=== PATIENT | female | born 2000 | race Caucasian/White ===

== ENCOUNTER 2024-10-28 08:58 | Emergency (ER) | payer BC, SELFPAY ==
[2024-10-28] VITALS (7 sets, daily range): BP systolic 108–119; BP diastolic 64–75; PULSE 66–85; RESP 16–19; TEMP 36.5–37.2; O2SAT 95–99
--- NOTE | ~2024-10-28 | US_ITS ---
US right upper quadrant INDICATION: Right upper quadrant pain PROCEDURE: Realtime right upper abdominal ultrasound. COMPARISON: No prior studies for comparison. FINDINGS: Pancreas not well visualized due to overlying bowel gas and patient body habitus. Liver ec hotexture is diffusely increased, consistent with fatty infiltration. There is normal directional fl ow in the portal vein. The gallbladder is normal without stones, gallbladder wall thickening or pericholecystic fluid. Comm on bile duct measures 4 mm. No sonographic Stubbs's sign. IMPRESSION: 1: Fatty infiltration of the liver. Reviewed, dictated and finalized at location A.
--- NOTE | ~2024-10-28 | CT_ITS ---
CT of the Abdomen and Pelvis: Indication: Abdominal pain, transaminitis Technique: 2.5 mm axial scans were obtained through the abdomen and pelvis following intravenous adm inistration of 100 cc of Omnipaque 350. Dose reduction technique was used on this scan by utilizing a utomated exposure control and iterative reconstruction technique. The dose-length product (DLP) was 1 685.10 mGy-cm. Findings: Scans through the lung bases are unremarkable. Probable diffuse hepatic steatosis. The spleen, pancreas, gallbladder, adrenals and kidneys are withi n normal limits. No evidence of aortic aneurysm. No lymphadenopathy. No bowel obstruction or bowel wall thickening. There is no evidence to suggest acute appendicitis. Images through the pelvis were performed. Urinary bladder unremarkable. No pelvic mass seen. No ascit es. Impression: Diffuse hepatic steatosis. Reviewed, dictated and finalized at location . Impression: Diffuse hepatic steatosis.
--- OUTSIDE RECORDS SUMMARY | 2024-10-28 09:07 | XMS_ITS | Continuity of Care Document ---
Author Organization [facility] Address [address] [place] [address] [place] [address] Phone Care Team Providers Care Tie Puller Name Role Phone Tucker OD, Taylor Unavailable Unavailable Medications Medication Instructions Dosage Effective Dates (start - stop) Status Comments escitalopram 20 mg tablet take 1 tablet by oral route every day 20 MG - Active Advance Directives Directive Yes / No Effective Date File Name No Information Encounters Encounter Description Practice Location Reason(s) For Visit Diagnoses Date Provider Providers Copied on Encounter [facility], [id number] [place] [address] [address], [place], [place], [id number], tel:[phone] [facility] No Information Tucker OD Taylor. [address] [place] [address] [address], [place], [place], [address], [place]. tel:[phone] Family History Family Member Type Diagnosis Age At Onset Problem Family history of Diabetes m slim Payers Payer name Insurance type Covered libertarian ID Authoriza tion(s) No Information Social History Type Description Quantity Date Captured Comments Alcohol Use Details Caffeine Use Details and coffee 1 cup per day Tobacco Use Status Current non-smoker Smoking Status Never smoker Non-Smoking Tobacco Use Details : No Details Available : No Details Available Sex Female Gender Identity Female Chief Complaint And Reason For Visit No Information Reason For Referral Reason For Referral No Information History Of Present Illness Encounter Date Complaint History Of Prese nt Illness No Information Functional Status Date Functional Assessmen t No Information Instructions Date Instruction Additional Infor mation No Information Assessments Type Assessment Date No Information Patient Care Teams Name Effective Dates (start - stop) Status Members No Information
--- NOTE | 2024-10-28 09:19 | ECG_ITS ---
Test Date: 2024-10-28 09:39:38 Measurements Intervals [place] Rate: 76 P: 16 NC: 149 QRS: 19 QRSD: 91 T: 29 QT: 373 QTc: 420 Interpretive Statements SINUS RHYTHM LOW QRS VOLTAGE IN PRECORDIAL LEADS CONSIDER INFERIOR INFARCT, AGE INDETERMINATE BASELINE ARTIFACT- I, II, III, AVR, AVL, AVF, V1-V3 ABNORMAL ECG No previous ECG available for comparison Electronically Signed On 10-28-2024 10:09:19 CDT by Gerson Oleary D.O.
--- NOTE | 2024-10-28 09:21 | ED_ITS ---
HPI - Recheck/Abnormal Lab/Rx General Chief Complaint: Recheck/Abnormal Lab/Rx <Rachael Rogers PA-C - Last Filed: 10/28/24 18:31> Stated Complaint: lab work recheck <Rachael Rogers PA-C - Last Filed: 10/28/24 18:31> Time Seen by Provider: 10/28/24 09:01 <Rachael Rogers PA-C - Last Filed: 10/28/24 18:31> History of Present Illness HPI narrative: 24 y/o F presents to the emergency department for reported elevated liver enzymes and upper abdominal pain. Patient states 4 days ago she began having intermittent diffuse upper abdominal pain that is worse after eating certain foods, specifically pizza and green beans. She reports associated nausea and vomiting. She went to her PCP and had lab work yesterday. She has contacted by her PCP this morning and told to go to the ER due to elevated liver enzymes and concerns for her gallbladder. Patient states she is currently having mild pain in her upper abdomen. She states that time the pain radiates up into her chest and into her back. She has not eaten anything today. No prior abdominal surgeries. Denies fever. Has had some soft stools. <Rachael Rogers PA-C - Last Filed: 10/28/24 18:31> Related Data Allergies/Adverse Reactions: Allergies Allergy/AdvReac Type Severity Reaction Status Date / Time No Known Allergies Allergy Verified 10/28/24 10:23 <Rachael Rogers PA-C - Last Filed: 10/28/24 18:31> Review of Systems 2 Review of Systems: All systems reviewed & are unremarkable except as noted in HPI and below <RICHARD Mclean Last Filed: 10/28/24 18:31> Exam 2 Narrative: GENERAL: Well-appearing, well-nourished, and in no acute distress. HEAD: Normocephalic, atraumatic. EYES: EOMI. ENT: Nares clear, no rhinorrhea or epistaxis. Mucous membranes moist. NECK: Supple. CHEST: Clear to auscultation. No respiratory distress. HEART: Regular rate and rhythm. No murmur heard. Normal peripheral pulses. ABDOMEN: Normoactive bowel sounds. Abdomen soft with tenderness in epigastrium and left upper quadrant. No significant right upper quadrant pain. Negative Stubbs's. EXTREMITIES: Normal range of motion. No edema. SKIN: Warm, dry, no rash. NEURO: No focal deficits. Alert and oriented x3 <Rachael Rogers PA-C - Last Filed: 10/28/24 18:31> Course CHEMICAL PROCESS EQUIPMENT OPERATOR/PA Physician Supervision This visit was performed by both a physician and an APC. I performed all aspects of the MDM as documented. <Yoseph Delgado MD - Last Filed: 10/28/24 18:31> Vital Signs Vital signs: Vital Signs Pulse Rate 80 10/28/24 09:16 Respiratory Rate 16 10/28/24 09:16 Blood Pressure 109/74 10/28/24 09:16 Pulse Oximetry 98 10/28/24 09:16 Temperature 97.7 F 10/28/24 11:30 Pulse Rate 66 10/28/24 13:47 Respiratory Rate 19 10/28/24 13:47 Blood Pressure 111/64 10/28/24 13:47 Pulse Oximetry 99 10/28/24 13:47 Oxygen Delivery Room Air 10/28/24 09:18 <Rachael Rogers PA-C - Last Filed: 10/28/24 18:31> Vital Signs Pulse Rate 80 10/28/24 09:16 Respiratory Rate 16 10/28/24 09:16 Blood Pressure 109/74 10/28/24 09:16 Pulse Oximetry 98 10/28/24 09:16 Temperature 97.7 F 10/28/24 11:30 Pulse Rate 66 10/28/24 13:47 Respiratory Rate 19 10/28/24 13:47 Blood Pressure 111/64 10/28/24 13:47 Pulse Oximetry 99 10/28/24 13:47 Oxygen Delivery Room Air 10/28/24 09:18 <Yoseph Delgado MD - Last Filed: 10/28/24 18:31> MDM - Recheck/Abnormal Lab/Rx MDM Narrative Medical decision making narrative: 24-year-old female presents to the emergency department for elevated liver enzymes found on outpatient labs by her PCP and intermittent upper abdominal pain for the past 4 days. See HPI for further history. Triage vitals are stable. Patient is afebrile and nontoxic appearing. Exam is significant for the above. CBC without leukocytosis or anemia. Chemistries remarkable for a bilirubin of 1.4, AST of 221, ALT is 665 and alk-phos of 185. Lipase is within normal limits. negative. UA with 511 RBCs and 11-20 white blood cells, 1+ leuk esterase 1+ bacteria. Patient denies urinary symptoms and is currently on her menstrual cycle. EKG shows normal sinus rhythm rate of 76 ppm, normal SD interval, normal QRS duration, normal QTC, no ST elevations or depressions. Troponin is undetectable. CT abdomen pelvis shows diffuse hepatic steatosis. Right upper quadrant ultrasound shows fatty infiltration of the liver. Hepatitis panel amount chest are negative. Patient and family at bedside updated on results. Patient received IV fluids, Pepcid and Zofran with significant improvement in symptoms. She states she is not currently having any pain. Uncertain source of transaminitis at this time. Patient does note that she recently started Zepbound for weight loss a few months ago. This may be the source of transaminitis, however would likely not explain the pain. She did have improvement after Pepcid, will start her on Pepcid for home for possible gastritis have her follow-up closely with GI and her PCP. She did note that her PCP advised her to stop taking Zepbound in the meantime. I discussed diet changes, refraining from NSAIDs and alcohol and strict ED return precautions. Patient is agreeable with the plan verbalized understanding. Discharged in stable condition. <Rachael Rogers PA-C - Last Filed: 10/28/24 18:31> Lab Data Result diagrams: 10/28/24 09:28 10/28/24 09:28 <Rachael Rogers PA-C - Last Filed: 10/28/24 18:31> Labs: Lab Results 10/28/24 10/28/24 Range/Units 09:28 09:38 WBC 6.8 (4.5-10.0) K/mm3 RBC 4.89 (4.2-5.4) M/mm3 Hgb 13.3 (12.0-15.0) g/dL Hct 39.8 (37.0-47.0) % MCV 81.4 (80-100) fl MCH 27.2 (26-34) pg MCHC 33.4 (32-36) g/dl RDW 12.4 (11.5-14.5) % Plt Count 360 (150-375) k/mm3 MPV 9.2 (7.4-10.4) fl Immature Gran % (Auto) 0.3 (0-0.5) % Neut % (Auto) 57.6 (45.5-73.1) % Lymph % (Auto) 34.9 (18.3-44.2) % Eagle % (Auto) 4.7 (2.6-8.5) % Eos % (Auto) 2.2 (0-4.4) % Baso % (Auto) 0.3 (0.2-1.2) % Lymph # (Auto) 2.37 (0.9-3.2) K/mm3 Eagle # (Auto) 0.3 (0.1-0.6) K/mm3 Eos # (Auto) 0.2 (0-0.3) K/mm3 Baso # (Auto) 0.0 (0.0-0.1) K/mm3 Abs Immat Gran (auto) 0.02 (0.00-0.031) K/mm3 Absolute Neuts (auto) 3.9 (1.3-6.7) K/mm3 Absolute Nucleated RBC 0.000 (0.0-0.012) K/mm3 Nucleated RBC % 0.0 (0.0-0.2) % Sodium 136 L (137-145) mmol/L Potassium 3.7 (3.4-5.0) mmol/L Chloride 106 (98-107) mmol/L Carbon Dioxide 24 (22-30) mmol/L Anion Gap 6 (4-12) mmol/L BUN 8 (7-17) mg/dL Creatinine 0.70 (0.7-1.0) mg/dL Estim Creat Clear Calc 140 ml/min Estimated GFR > 60 (59 - ) Glucose 98 (65-110) mg/dL Calcium 8.8 (8.4-10.2) mg/dL Total Bilirubin 1.4 H (0.2-1.3) mg/dL AST 221 H (14-36) U/L ALT 665 H (6-35) U/L Alkaline Phosphatase 185 H (38-126) U/L Troponin I < 0.012 (0.000-0.034) ng/mL Total Protein 7.3 (6.3-8.2) g/dL Albumin 4.2 (3.5-5.1) g/dL Lipase 33 (23-300) U/L Urine Color Dark yellow (Yellow) Urine Appearance Cloudy H (Clear) Urine pH 5.5 (5.0-9.0) Ur Specific [place] 1.023 (1.001-1.035) Urine Protein 1+ H (Negative) mg/dL Urine Glucose (UA) Negative (Negative) mg/dL Urine Ketones Trace H (Negative) mg/dL Ur Blood (Man) 3+ H (Negative) Urine Nitrate Negative (Negative) Urine Bilirubin Negative (Negative) Urine Urobilinogen 1.0 (<2.0) mg/dL Leukocyte Esterase Rfl 1+ H (Negative) TALITA/UL Urine RBC 51-100 H (0-2) /hpf Urine WBC 11-20 H (0-3) /hpf Ur Squamous Epith Cells Moderate (Few) /hpf Urine Bacteria 1+ H /hpf Urine Casts 0-2 POC Urine HCG, Qual Negative (Negative) Hepatitis A IgM Ab Negative (Negative) Hep Bs Antigen Negative (Negative) Hep B Core IgM Ab Negative (Negative) Hepatitis C Ab Screen Negative (Negative) Monoscreen Negative (Negative) <Rachael Rogers PA-C - Last Filed: 10/28/24 18:31> Lab Results 10/28/24 10/28/24 Range/Units 09:28 09:38 WBC 6.8 (4.5-10.0) K/mm3 RBC 4.89 (4.2-5.4) M/mm3 Hgb 13.3 (12.0-15.0) g/dL Hct 39.8 (37.0-47.0) % MCV 81.4 (80-100) fl MCH 27.2 (26-34) pg MCHC 33.4 (32-36) g/dl RDW 12.4 (11.5-14.5) % Plt Count 360 (150-375) k/mm3 MPV 9.2 (7.4-10.4) fl Immature Gran % (Auto) 0.3 (0-0.5) % Neut % (Auto) 57.6 (45.5-73.1) % Lymph % (Auto) 34.9 (18.3-44.2) % Eagle % (Auto) 4.7 (2.6-8.5) % Eos % (Auto) 2.2 (0-4.4) % Baso % (Auto) 0.3 (0.2-1.2) % Lymph # (Auto) 2.37 (0.9-3.2) K/mm3 [place] # (Auto) 0.3 (0.1-0.6) K/mm3 Eos # (Auto) 0.2 (0-0.3) K/mm3 Baso # (Auto) 0.0 (0.0-0.1) K/mm3 Abs Immat Gran (auto) 0.02 (0.00-0.031) K/mm3 Absolute Neuts (auto) 3.9 (1.3-6.7) K/mm3 Absolute Nucleated RBC 0.000 (0.0-0.012) K/mm3 Nucleated RBC % 0.0 (0.0-0.2) % Sodium 136 L (137-145) mmol/L Potassium 3.7 (3.4-5.0) mmol/L Chloride 106 (98-107) mmol/L Carbon Dioxide 24 (22-30) mmol/L Anion Gap 6 (4-12) mmol/L BUN 8 (7-17) mg/dL Creatinine 0.70 (0.7-1.0) mg/dL Estim Creat Clear Calc 140 ml/min Estimated GFR > 60 (59 - ) Glucose 98 (65-110) mg/dL Calcium 8.8 (8.4-10.2) mg/dL Total Bilirubin 1.4 H (0.2-1.3) mg/dL AST 221 H (14-36) U/L ALT 665 H (6-35) U/L Alkaline Phosphatase 185 H (38-126) U/L Troponin I < 0.012 (0.000-0.034) ng/mL Total Protein 7.3 (6.3-8.2) g/dL Albumin 4.2 (3.5-5.1) g/dL Lipase 33 (23-300) U/L Urine Color Dark yellow (Yellow) Urine Appearance Cloudy H (Clear) Urine pH 5.5 (5.0-9.0) Ur Specific [place] 1.023 (1.001-1.035) Urine Protein 1+ H (Negative) mg/dL Urine Glucose (UA) Negative (Negative) mg/dL Urine Ketones Trace H (Negative) mg/dL Ur Blood (Man) 3+ H (Negative) Urine Nitrate Negative (Negative) Urine Bilirubin Negative (Negative) Urine Urobilinogen 1.0 (<2.0) mg/dL Leukocyte Esterase Rfl 1+ H (Negative) TALITA/UL Urine RBC 51-100 H (0-2) /hpf Urine WBC 11-20 H (0-3) /hpf Ur Squamous Epith Cells Moderate (Few) /hpf Urine Bacteria 1+ H /hpf Urine Casts 0-2 POC Urine HCG, Qual Negative (Negative) Hepatitis A IgM Ab Negative (Negative) Hep Bs Antigen Negative (Negative) Hep B Core IgM Ab Negative (Negative) Hepatitis C Ab Screen Negative (Negative) Monoscreen Negative (Negative) <Yoseph Delgado MD - Last Filed: 10/28/24 18:31> Discharge Plan Discharge Clinical Impression: Epigastric abdominal pain, Transaminitis <Rachael Rogers PA-C - Last Filed: 10/28/24 18:31> Patient Disposition: Home <Rachael Rogers PA-C - Last Filed: 10/28/24 18:31> Condition: Stable <Rachael Rogers PA-C - Last Filed: 10/28/24 18:31> Instructions: Antibiotic Form, Gastritis (DC), Diet for Stomach Ulcers and Gastritis (ED), Transaminitis (ED) <Rachael Rogers PA-C - Last Filed: 10/28/24 18:31> Additional Instructions: Please take the medications as directed. Refrain from alcohol and NSAID such as ibuprofen, Aleve, naproxen, naproxen, Advil, Motrin. Refrain from spicy or fatty foods as discussed. Eat a bland diet. Follow-up closely with her PCP and GI physician. Return to the emergency department if you develop new or worsening pain, you are unable to tolerate food or fluids, you develop a fever, or other concerning symptoms. <RICHARD Mclean Last Filed: 10/28/24 18:31> Patient Language: Czech <Rachael Rogers PA-C - Last Filed: 10/28/24 18:31> Prescriptions: New ondansetron 4 mg tablet,disintegrating 4 mg PO Q8H Qty: 14 0RF famotidine 20 mg tablet 20 mg PO DAILY Qty: 14 0RF <Rachael Rogers PA-C - Last Filed: 10/28/24 18:31> [facility] - Bossman Kay MD [Physician] - <Rachael Rogers PA-C - Last Filed: 10/28/24 18:31>
[2024-10-28 09:34] LABS: Hematocrit 39.8 % (37.0-47.0); Hemoglobin 13.3 g/dL (12.0-15.0); Immature Granulocyte Percent A 0.3 % (0-0.5); Lymphocytes Absolute Auto 2.37 K/mm3 (0.9-3.2); Mean Corpuscular HGB Conc 33.4 g/dl (32-36); Mean Corpuscular Hemoglobin 27.2 pg (26-34); Mean Corpuscular Volume 81.4 fl (80-100); Nucleated Red Blood Cells Absolute Auto 0.000 K/mm3 (0.0-0.012); Nucleated Red Blood Cells Perc 0.0 % (0.0-0.2); Platelet Count Result 360 k/mm3 (150-375); Red Blood Count 4.89 M/mm3 (4.2-5.4); White Blood Count 6.8 K/mm3 (4.5-10.0)
[2024-10-28 09:40] LABS: BEDSIDEPREGUCG Negative (Negative)
[2024-10-28 09:41] LABS: Add Urine Microscopic? YES; Appearance Urine Cloudy (Clear); Glucose Urine UA Negative (Negative); Leukocyte Esterase Ur 1+ LEU/UL (Negative); Nitrate Urine Negative (Negative); Non Pathogenic Casts 0-2; Specific Grav Ur 1.023 (1.001-1.035)
[2024-10-28 09:47] LABS: Alanine Aminotransferase 665 U/L (6-35); Albumin Level 4.2 g/dL (3.5-5.1); Alkaline Phosphatase 185 U/L (38-126); Anion Gap 6 mmol/L (4-12); Aspartate Amino Transferase 221 U/L (14-36); Bilirubin,Total 1.4 mg/dL (0.2-1.3); Blood Urea Nitrogen 8 mg/dL (7-17); Calcium 8.8 mg/dL (8.4-10.2); Carbon Dioxide 24 mmol/L (22-30); Chloride 106 mmol/L (98-107); Estimated CRCL calculation 140 ml/min; Estimated Glomerular Filt Rate > 60; Glucose 98 mg/dL (65-110); Lipase 33 U/L (23-300); Potassium 3.7 mmol/L (3.4-5.0); Sodium 136 mmol/L (137-145); Total Protein 7.3 g/dL (6.3-8.2)
[2024-10-28 09:57] LABS: Troponin I < 0.012 ng/mL (0.000-0.034)
--- OUTSIDE RECORDS SUMMARY | 2024-10-28 10:14 | XMS_ITS | Continuity of Care Document ---
Author Organization [facility] Address [address] [place] [address] [place] [address] Phone Care Team Providers Care Reading Recovery Teacher Name Role Phone Tucker OD, Taylor Unavailable Unavailable Medications Medication Instructions Dosage Effective Dates (start - stop) Status Comments escitalopram 20 mg tablet take 1 tablet by oral route every day 20 MG - Active Advance Directives Directive Yes / No Effective Date File Name No Information Encounters Encounter Description Practice Location Reason(s) For Visit Diagnoses Date Provider Providers Copied on Encounter [facility], [address] [place] [address] [address], [place], [place], [id number], tel:[phone] [facility] No Information Tucker OD Taylor. [address] [place] [address] [address], [place], [place], [address], [place]. tel:[phone] Family History Family Member Type Diagnosis Age At Onset Problem Family history of Diabetes m slim Payers Payer name Insurance type Covered alliance party ID Authoriza tion(s) No Information Social History [...]
--- OUTSIDE RECORDS SUMMARY | 2024-10-28 10:14 | XMS_ITS | Clinical Summary ---
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
[2024-10-28] MEDS: ONDANSETRON INJ 4 MG/2 ML VIAL IV PUSH (10:23)
[2024-10-28] MEDS: SODIUM CHLORIDE 0.9% IV 1,000 ML 999 ML IV CONT (10:23)
[2024-10-28] MEDS: FAMOTIDINE 20 MG/2 ML VIAL IV PUSH (10:23)
[2024-10-28 12:22] LABS: Negative Monotest Control Negative (Negative); Positive Monotest Control Positive (Positive)
[2024-10-28 12:58] LABS: Hepatitis B Surface Antigen Negative (Negative)
[2024-10-28 13:04] LABS: HAV RESULT Negative (Negative); Hepatitis B Core IgM Result Negative (Negative)
== END 2024-10-28 13:50 | disposition home or self-care (01) ==
PROVIDERS: Emergency Provider Physician Assistant; PCP Internal Medicine
DX: R10.13 Epigastric pain (principal); R74.01 Elevation of levels of liver transaminase levels
CPT/HCPCS: 36415; 74177; 76705; 80053; 80074; 81001; 81025; 83690; 84484; 85025; 86308; 93005; 96361; 96374; 96375; 99284; J2405; J7030; Q9967